=== PATIENT | female | born 1950 | race Caucasian/White ===

== ENCOUNTER 2024-08-02 15:11 | Inpatient (IN) | payer MEDICARE, MEDICAID ==
[~2024-08-02] VITALS: Ht 152.4 cm; Wt 92.5 kg
[~2024-08-02 15:11] MED LIST: ALBU10.7; ASPI81TA52 PO; CEFD300C21 PO; FURO20TA4 PO; HYDR453.3; KETO120S5 TOP; LANTUS SQ; LOSA25TA41 PO; METO-395 PO; NITR100C11 PO; ONDA-243 PO; OXYB-58 PO; PRAM0.129; PRED50TA; PREG100C56; SULF1TAB45; SUMA50TA17 PO; TRAM50TA2 PO
[2024-08-02 15:54] LABS: BASOPHILS % (AUTO) 0.2 % (0-1); EOSINOPHILS # (AUTO) 0.2 X10'3 (0-0.9); EOSINOPHILS % (AUTO) 1.7 % (0-6); HEMATOCRIT 31.9 % (35.0-45.0); HEMOGLOBIN 10.5 g/dl (12.0-16.0); LYMPHOCYTES # (AUTO) 1.2 X10'3 (1.1-4.8); LYMPHOCYTES % (AUTO) 12.5 % (21-51); MEAN CORPUSCULAR HEMOGLOBIN 26.6 PG (27.0-31.0); MEAN CORPUSCULAR HGB CONC 32.9 g/dL (33.0-36.5); MEAN CORPUSCULAR VOLUME 80.9 FL (78-98); MEAN PLATELET VOLUME 7.4 FL (7.4-10.4); MONOCYTES # (AUTO) 0.6 X10'3 (0-0.9); NEUTROPHILS # (AUTO) 7.4 X10'3 (1.8-7.7); NEUTROPHILS % (AUTO) 79.6 % (42-75); PLATELET COUNT 436 X10'3 (140-440); RED BLOOD COUNT 3.94 X10'6 (4.20-5.60); RED CELL DISTRIBUTION WIDTH 18.5 % (11.5-14.5); WHITE BLOOD COUNT 9.3 X10'3 (4.5-11.0)
[2024-08-02 16:03] LABS: ALBUMIN 3.2 G/DL (3.4-5.0); ANION GAP 8 (8-16); BLOOD UREA NITROGEN 118 MG/DL (7-18); BUN/CREATININE RATIO 38.7 (10.0-20.0); CALCIUM 8.6 MG/DL (8.5-10.1); CHLORIDE 99 MMOL/L (99-107); CREATININE 3.05 MG/DL (0.40-0.90); GLUCOSE 209 MG/DL (70-104); POTASSIUM 5.9 MMOL/L (3.5-5.1); SODIUM 132 MMOL/L (135-145); TOTAL CARBON DIOXIDE 24.9 MMOL/L (24-32); eCRCL 12 ML/MIN; eGFR 15 ML/MIN
[2024-08-02] MEDS: normal saline 1000ML IV soln IVB ONE (18:39)
[2024-08-02] MEDS: sodium polystyrene sulfonate 15gm/60ml oral suspension PO ONE ×2 (18:40→21:52)
[2024-08-02] MEDS ORDERED: NYST15OI TOP (19:12)
[2024-08-02] MEDS ORDERED: SENN-360 PO (19:12)
[2024-08-02] MEDS ORDERED: DOCU100C40 PO (19:12)
[2024-08-02] MEDS ORDERED: EMPA10TA PO (19:12)
[2024-08-02] MEDS ORDERED: INSU100I52 (19:12)
[2024-08-02] MEDS ORDERED: PRAM0.129 PO (19:12)
[2024-08-02] MEDS ORDERED: FLUT1BLS4 INH (19:12)
[2024-08-02] MEDS ORDERED: ARIP2TAB67 PO (19:12)
[2024-08-02] MEDS ORDERED: PHO667C PO (19:12)
[2024-08-02] MEDS ORDERED: ATOR-2 PO (19:12)
[2024-08-02] MEDS ORDERED: PANT40TA54 PO (19:12)
[2024-08-02] MEDS ORDERED: INSU100I31 (19:22)
[2024-08-02 20:12] LABS: ALANINE AMINOTRANSFERASE 24 U/L (12-78); ALBUMIN 3.1 G/DL (3.4-5.0); ALBUMIN/GLOBULIN RATIO 0.8 (1.1-1.5); ALKALINE PHOSPHATASE 159 IU/L (46-116); ANION GAP 10 (8-16); ASPARTATE AMINO TRANSFERASE 12 U/L (10-37); BILIRUBIN,TOTAL 0.5 MG/DL (0.1-1.0); BLOOD UREA NITROGEN 116 MG/DL (7-18); CALCIUM 8.2 MG/DL (8.5-10.1); CHLORIDE 99 MMOL/L (99-107); CREATININE 2.83 MG/DL (0.40-0.90); GLUCOSE 276 MG/DL (70-104); POTASSIUM 5.6 MMOL/L (3.5-5.1); SODIUM 132 MMOL/L (135-145); TOTAL CARBON DIOXIDE 23.2 MMOL/L (24-32); eCRCL 13 ML/MIN; eGFR 16 ML/MIN
[2024-08-02] MEDS ORDERED: magnesium hydroxide 30ml (MOM) UD suspension PO PRN (21:25)
[2024-08-02] MEDS ORDERED: ondansetron/PF 4mg/2ml inj IV PRN (21:25)
[2024-08-02] MEDS ORDERED: magnesium Cl slow-release 64mg tablet PO PRN (21:25)
[2024-08-02] MEDS ORDERED: acetaminophen 325mg tablet PO PRN (21:25)
[2024-08-02] MEDS ORDERED: potassium Cl 40MEQ/1/2NS 520ml 520 ML IV PRN (21:25)
[2024-08-02] MEDS ORDERED: potassium Cl 20 mEq SR tablet PO PRN ×2 (21:25)
[2024-08-02] MEDS ORDERED: magnesium sulf-water 4G/100mL 100 ML IV PRN (21:25)
[2024-08-02] MEDS ORDERED: magnesium sulf-water 2g/50mL 50 ML IV PRN (21:25)
[2024-08-02] MEDS: insulin regular, human 10 units/0.1 ml syringe SQ ONE (21:55)
[2024-08-02] MEDS: CALCIUM GLUC 1gm/50ml NACL,iso 50 ML IV SCH (22:14)
[2024-08-03] VITALS (12 sets, daily range): BP systolic 118–136; BP diastolic 50–78; PULSE 67–94; RESP 14–21; TEMP 96.7–98.7; O2SAT 95–100
[2024-08-03] MEDS: HYDROcodone/acetaminophen 10/325mg tab PO ONE (02:41)
[2024-08-03] MEDS ORDERED: glucagon, human recombinant 1mg kit SUBCUT PRN (05:25)
[2024-08-03] MEDS ORDERED: dextrose 50%-water 50ml dispensing syringe IV PRN ×2 (05:25)
[2024-08-03] MEDS ORDERED: DEXTROSE 15 GM of carb/4 tabs (each vial/BOTTLE has 4 tablets) PO PRN ×2 (05:25)
[2024-08-03] MEDS ORDERED: HYDROcodone/acetaminophen 10/325mg tab PO ONE (07:00)
[2024-08-03] MEDS: INSULIN LISPRO 100 UNIT/ML INSULN.PEN MULTI-DOSE SQ SCH (07:00)
[2024-08-03 07:11] LABS: APTT 24 SECONDS (22-32); INR 1.1 INR; PROTHROMBIN TIME 11.7 SECONDS (9.0-12.0)
[2024-08-03 07:21] LABS: BASOPHILS # (AUTO) 0.1 X10'3 (0-0.2); BASOPHILS % (AUTO) 0.7 % (0-1); EOSINOPHILS # (AUTO) 0.2 X10'3 (0-0.9); HEMATOCRIT 27.9 % (35.0-45.0); LYMPHOCYTES # (AUTO) 1.3 X10'3 (1.1-4.8); LYMPHOCYTES % (AUTO) 16.8 % (21-51); MEAN CORPUSCULAR HEMOGLOBIN 26.4 PG (27.0-31.0); MEAN CORPUSCULAR HGB CONC 32.4 g/dL (33.0-36.5); MEAN CORPUSCULAR VOLUME 81.4 FL (78-98); MEAN PLATELET VOLUME 7.3 FL (7.4-10.4); MONOCYTES # (AUTO) 0.4 X10'3 (0-0.9); MONOCYTES % (AUTO) 4.7 % (2-12); NEUTROPHILS # (AUTO) 5.9 X10'3 (1.8-7.7); NEUTROPHILS % (AUTO) 74.8 % (42-75); PLATELET COUNT 337 X10'3 (140-440); RED BLOOD COUNT 3.42 X10'6 (4.20-5.60); RED CELL DISTRIBUTION WIDTH 18.5 % (11.5-14.5); WHITE BLOOD COUNT 7.8 X10'3 (4.5-11.0)
[2024-08-03 07:38] LABS: ALANINE AMINOTRANSFERASE 14 U/L (12-78); ALBUMIN/GLOBULIN RATIO 0.8 (1.1-1.5); ALKALINE PHOSPHATASE 156 IU/L (46-116); ANION GAP 12 (8-16); ASPARTATE AMINO TRANSFERASE 14 U/L (10-37); BILIRUBIN,TOTAL 0.6 MG/DL (0.1-1.0); BLOOD UREA NITROGEN 111 MG/DL (7-18); BUN/CREATININE RATIO 42.9 (10.0-20.0); CALCIUM 8.6 MG/DL (8.5-10.1); CHLORIDE 102 MMOL/L (99-107); CHOL/HDL RATIO 3.3 (0.00-4.99); CHOLESTEROL 153 MG/DL (0-200); CREATININE 2.59 MG/DL (0.40-0.90); GLUCOSE 98 MG/DL (70-104); HDL CHOLESTEROL 47 MG/DL (35-60); LDL CHOLESTEROL 81 MG/DL (50-100); MAGNESIUM 2.2 MG/DL (1.5-2.4); PHOSPHORUS 5.5 MG/DL (2.3-4.5); POTASSIUM 5.3 MMOL/L (3.5-5.1); SODIUM 136 MMOL/L (135-145); TOTAL CARBON DIOXIDE 22.5 MMOL/L (24-32); TOTAL PROTEIN 6.6 G/DL (6.4-8.2); TRIGLYCERIDES 122 MG/DL (20-135); eCRCL 14 ML/MIN; eGFR 18 ML/MIN
[2024-08-03] MEDS: K and/or MAG REPLACEMENT MC SCH (08:00)
[2024-08-03 08:07] LABS: HEMOGLOBIN A1C 6.9 % (4.5-6.2)
[2024-08-03] MEDS: SODIUM ZIRCONIUM CYCLOSILICATE 10 GM POWD.PACK PO SCH (08:48)
[2024-08-03] MEDS: EMPAGLIFLOZIN 10 MG TABLET PO SCH (08:49)
[2024-08-03] MEDS: aripiprazole 2MG tablet PO SCH (08:49)
[2024-08-03] MEDS: metoprolol succinate 25mg (24-HOUR) SR. Tablet PO SCH (08:49)
[2024-08-03] MEDS: docusate sod 100mg capsule PO SCH (08:49)
[2024-08-03] MEDS: atorvastatin 20mg tablet PO SCH (08:49)
[2024-08-03] MEDS: calcium acetate 667mg (PhosLO) capsule PO SCH (08:49)
[2024-08-03] MEDS: furosemide 20MG tablet PO SCH (08:50)
[2024-08-03] MEDS: losartan 25mg tablet PO SCH (08:50)
[2024-08-03] MEDS: heparin, porcine 5000 units/ml vial SQ SCH (08:51)
[2024-08-03] MEDS: sodium bicarbonate 1meq/ml inj 150 ML in dextrose 5%-water 1,000 ML IV SCH (15:37)
[2024-08-03] MEDS: insulin glargine (Lantus) pen - multi-dose SQ SCH (21:51)
[2024-08-04] VITALS (8 sets, daily range): BP systolic 102–144; BP diastolic 43–75; PULSE 74–83; RESP 16–20; TEMP 97.1–98; O2SAT 95–100
[2024-08-04 06:58] LABS: BASOPHILS % (AUTO) 0.7 % (0-1); EOSINOPHILS # (AUTO) 0.2 X10'3 (0-0.9); EOSINOPHILS % (AUTO) 3.7 % (0-6); HEMATOCRIT 25.9 % (35.0-45.0); HEMOGLOBIN 8.6 g/dl (12.0-16.0); LYMPHOCYTES # (AUTO) 0.9 X10'3 (1.1-4.8); MEAN CORPUSCULAR HEMOGLOBIN 26.4 PG (27.0-31.0); MEAN CORPUSCULAR VOLUME 79.9 FL (78-98); MEAN PLATELET VOLUME 7.1 FL (7.4-10.4); MONOCYTES # (AUTO) 0.3 X10'3 (0-0.9); MONOCYTES % (AUTO) 4.8 % (2-12); NEUTROPHILS % (AUTO) 73.8 % (42-75); PLATELET COUNT 256 X10'3 (140-440); RED BLOOD COUNT 3.24 X10'6 (4.20-5.60); RED CELL DISTRIBUTION WIDTH 18.4 % (11.5-14.5); WHITE BLOOD COUNT 5.4 X10'3 (4.5-11.0)
[2024-08-04 07:14] LABS: APTT 26 SECONDS (22-32); INR 1.1 INR; PROTHROMBIN TIME 11.8 SECONDS (9.0-12.0)
[2024-08-04 07:25] LABS: ALANINE AMINOTRANSFERASE 17 U/L (12-78); ALBUMIN 2.7 G/DL (3.4-5.0); ALBUMIN/GLOBULIN RATIO 0.8 (1.1-1.5); ALKALINE PHOSPHATASE 134 IU/L (46-116); ANION GAP 10 (8-16); ASPARTATE AMINO TRANSFERASE 15 U/L (10-37); BILIRUBIN,TOTAL 0.7 MG/DL (0.1-1.0); BLOOD UREA NITROGEN 98 MG/DL (7-18); BUN/CREATININE RATIO 41.5 (10.0-20.0); CALCIUM 8.7 MG/DL (8.5-10.1); CHLORIDE 103 MMOL/L (99-107); CREATININE 2.36 MG/DL (0.40-0.90); GLUCOSE 117 MG/DL (70-104); PHOSPHORUS 4.7 MG/DL (2.3-4.5); POTASSIUM 4.3 MMOL/L (3.5-5.1); SODIUM 140 MMOL/L (135-145); TOTAL CARBON DIOXIDE 26.9 MMOL/L (24-32); TOTAL PROTEIN 5.9 G/DL (6.4-8.2); eCRCL 15 ML/MIN; eGFR 20 ML/MIN
[2024-08-04] MEDS: nystatin 15 GM powder TP SCH (20:08)
[2024-08-04] MEDS: mag hydrox/Alum hydrox/simeth 30ml oral suspension PO PRN (20:29)
[2024-08-04] MEDS: HYDROcodone/acetaminophen 10/325mg tab PO PRN (21:11)
[2024-08-05 02:00] VITALS: BP 112/64; PULSE 77; RESP 19; TEMP 97.1; O2SAT 97
[2024-08-05 06:00] VITALS: BP 150/77; PULSE 77; RESP 14; TEMP 98; O2SAT 99
[2024-08-05 07:26] LABS: ALANINE AMINOTRANSFERASE 19 U/L (12-78); ALBUMIN 2.9 G/DL (3.4-5.0); ALBUMIN/GLOBULIN RATIO 0.7 (1.1-1.5); ALKALINE PHOSPHATASE 145 IU/L (46-116); ANION GAP 6 (8-16); APTT 27 SECONDS (22-32); ASPARTATE AMINO TRANSFERASE 16 U/L (10-37); BILIRUBIN,TOTAL 0.8 MG/DL (0.1-1.0); BLOOD UREA NITROGEN 73 MG/DL (7-18); BUN/CREATININE RATIO 30.7 (10.0-20.0); CALCIUM 8.6 MG/DL (8.5-10.1); CHLORIDE 101 MMOL/L (99-107); CREATININE 2.38 MG/DL (0.40-0.90); GLUCOSE 149 MG/DL (70-104); INR 1.1 INR; MAGNESIUM 2.4 MG/DL (1.5-2.4); PHOSPHORUS 3.8 MG/DL (2.3-4.5); POTASSIUM 3.6 MMOL/L (3.5-5.1); PROTHROMBIN TIME 11.4 SECONDS (9.0-12.0); SODIUM 142 MMOL/L (135-145); TOTAL CARBON DIOXIDE 34.7 MMOL/L (24-32); TOTAL PROTEIN 7.2 G/DL (6.4-8.2); eCRCL 15 ML/MIN; eGFR 20 ML/MIN
[2024-08-05 07:27] LABS: BASOPHILS % (AUTO) 0.8 % (0-1); EOSINOPHILS # (AUTO) 0.3 X10'3 (0-0.9); EOSINOPHILS % (AUTO) 5.3 % (0-6); HEMATOCRIT 28.9 % (35.0-45.0); HEMOGLOBIN 9.5 g/dl (12.0-16.0); LYMPHOCYTES # (AUTO) 0.9 X10'3 (1.1-4.8); LYMPHOCYTES % (AUTO) 17.6 % (21-51); MEAN CORPUSCULAR HEMOGLOBIN 26.4 PG (27.0-31.0); MEAN CORPUSCULAR HGB CONC 32.8 g/dL (33.0-36.5); MEAN CORPUSCULAR VOLUME 80.4 FL (78-98); MEAN PLATELET VOLUME 7.3 FL (7.4-10.4); MONOCYTES # (AUTO) 0.2 X10'3 (0-0.9); MONOCYTES % (AUTO) 4.2 % (2-12); NEUTROPHILS # (AUTO) 3.8 X10'3 (1.8-7.7); NEUTROPHILS % (AUTO) 72.1 % (42-75); PLATELET COUNT 232 X10'3 (140-440); RED BLOOD COUNT 3.59 X10'6 (4.20-5.60); RED CELL DISTRIBUTION WIDTH 17.9 % (11.5-14.5); WHITE BLOOD COUNT 5.3 X10'3 (4.5-11.0)
[2024-08-05 08:00] VITALS: RESP 14; O2SAT 99
[2024-08-05 11:00] VITALS: BP 136/66; PULSE 86; RESP 10; TEMP 97.5; O2SAT 97
[2024-08-05] MEDS: HYDROcodone/acetaminophen 10/325mg tab PO ONE (14:04)
[2024-08-05 15:00] VITALS: BP 141/72; PULSE 91; RESP 18; TEMP 98; O2SAT 92
== END 2024-08-05 16:56 | DRG 682 ==
LOC: ER 15:12 → ED HOLD 21:29 → PCU 3S 08-03 01:23
PROVIDERS: ADMIT Internal Medicine Critical Care Medicine; ATTEND Internal Medicine
DX: N17.0 Acute kidney failure with tubular necrosis (principal); G93.41 Metabolic encephalopathy; Z68.41 Body mass index [BMI] 40.0-44.9, adult; I13.0 Hypertensive heart and chronic kidney disease with heart failure and stage 1 through stage 4 chronic kidney disease, or unspecified chronic kidney disease; I50.32 Chronic diastolic (congestive) heart failure; E86.0 Dehydration; E87.5 Hyperkalemia; N18.4 Chronic kidney disease, stage 4 (severe); E88.09 Other disorders of plasma-protein metabolism, not elsewhere classified; K74.60 Unspecified cirrhosis of liver; E66.01 Morbid (severe) obesity due to excess calories; K76.89 Other specified diseases of liver; E78.00 Pure hypercholesterolemia, unspecified; J45.909 Unspecified asthma, uncomplicated; I35.0 Nonrheumatic aortic (valve) stenosis; E11.22 Type 2 diabetes mellitus with diabetic chronic kidney disease; G89.29 Other chronic pain; Z88.8 Allergy status to other drugs, medicaments and biological substances; Z88.0 Allergy status to penicillin; Z91.041 Radiographic dye allergy status; Z79.899 Other long term (current) drug therapy; K72.10 Chronic hepatic failure without coma
CPT/HCPCS: 36415; 73590; 73610; 80048; 80053; 80061; 82140; 82948; 83036; 83735; 84100; 85025; 85610; 85730; 87081; 93005; 99285; A6213; A6250; A6449; G0378; J0610; J1644; J1815; J3490; J7030; J7070